=== PATIENT | male | born 1960 | race Caucasian/White ===

== ENCOUNTER 2016-11-21 03:36 | Emergency (ER) | payer MEDICARE ==
[2016-02-22 10:04] VITALS: BMI 28.9
[~2016-11-21 03:36] MED LIST: ADVAIR 250/501 DISK INH; HYDROCODON-ACE1 EAC9 PO; LEVAQUIN750 MG PO; PREDNISONE10 MG PO; PROVENTIL HFA6.7 GM INH
[2016-11-21 03:53] LABS: BASOPHILS 0.5 % (0-2); EOSINOPHILS 4.4 % (0-7); HEMATOCRIT 31.4 % (42.0-54.0); HEMOGLOBIN 10.3 g/dL (13.5-17.5); IMMATURE GRANULOCYTES 0.2 % (0-5); LYMPHOCYTES 31.5 % (15-50); MCH 29.1 pg (26.0-34.0); MCHC 32.8 g/dL (31.0-37.0); MCV 88.7 fL (80.0-100.0); MEAN PLATELET VOLUME 9.6 fL (7.4-10.4); MONOCYTES 12.1 % (2-11); NEUTROPHILS 51.3 % (40-80); PLATELET COUNT 282 10x3/uL (130-400); RBC 3.54 10x6/uL (4.20-6.10); RDW 14.6 % (11.5-14.5); WBC 6.6 10x3/uL (4.8-10.8)
[2016-11-21 04:10] LABS: ALBUMIN 3.1 g/dL (3.4-5.0); ALKALINE PHOSPHATASE 124 U/L (46-116); ALT (SGPT) 62 U/L (10-68); BILIRUBIN - TOTAL 0.16 mg/dL (0.2-1.3); CALC OSMOLALITY 274 mosm/kg (275-300); CALCIUM 9.5 mg/dL (8.5-10.1); CARBON DIOXIDE 22.2 mmol/L (21.0-32.0); CHLORIDE - SERUM 106 mmol/L (98-107); CREATININE - SERUM 0.9 mg/dL (0.6-1.3); POTASSIUM - SERUM 4.2 mmol/L (3.5-5.1); PROTEIN - SERUM 6.3 g/dL (6.4-8.2); SODIUM 138 mmol/L (136-145); UREA NITROGEN 9 mg/dL (7-18); eGFR NON AFRICAN AMERICAN > 90 mL/min (90-120)
[2016-11-21 04:13] LABS: GLUCOSE 94 mg/dL (74-106)
== END 2016-11-21 04:31 | disposition home or self-care (01) ==
LOC: D.ER 03:36
PROVIDERS: Emergency Medicine
DX: G25.81 Restless legs syndrome (principal); M79.605 Pain in left leg; M79.604 Pain in right leg

== ENCOUNTER 2016-11-24 10:15 | Emergency (ER) | payer MEDICARE ==
[2016-02-22 10:04] VITALS: BMI 28.9
[2016-11-24 13:57] LABS: BASOPHILS 0.5 % (0-2); EOSINOPHILS 2.8 % (0-7); HEMATOCRIT 37.8 % (42.0-54.0); HEMOGLOBIN 12.1 g/dL (13.5-17.5); IMMATURE GRANULOCYTES 0.1 % (0-5); LYMPHOCYTES 22.9 % (15-50); MCH 29.1 pg (26.0-34.0); MCV 90.9 fL (80.0-100.0); MEAN PLATELET VOLUME 10.1 fL (7.4-10.4); MONOCYTES 6.5 % (2-11); NEUTROPHILS 67.2 % (40-80); PLATELET COUNT 316 10x3/uL (130-400); RBC 4.16 10x6/uL (4.20-6.10); RDW 14.9 % (11.5-14.5); WBC 7.4 10x3/uL (4.8-10.8)
[2016-11-24 14:08] LABS: APTT 34.9 SECONDS (22.8-39.4); INR 0.96 (0.85-1.17); PROTIME 12.6 SECONDS (11.6-15.0)
[2016-11-24 14:16] LABS: ALBUMIN 3.6 g/dL (3.4-5.0); ALKALINE PHOSPHATASE 118 U/L (46-116); ALT (SGPT) 57 U/L (10-68); CALC OSMOLALITY 269 mosm/kg (275-300); CALCIUM 10.6 mg/dL (8.5-10.1); CARBON DIOXIDE 28.6 mmol/L (21.0-32.0); CHLORIDE - SERUM 102 mmol/L (98-107); CREATININE - SERUM 0.8 mg/dL (0.6-1.3); GLUCOSE 103 mg/dL (74-106); PROTEIN - SERUM 7.4 g/dL (6.4-8.2); SODIUM 136 mmol/L (136-145); UREA NITROGEN 8 mg/dL (7-18); eGFR NON AFRICAN AMERICAN > 90 mL/min (90-120)
== END 2016-11-24 17:37 | disposition other institution (70) ==
LOC: D.ER 10:15
PROVIDERS: Nurse Practitioner Family
DX: D49.6 Neoplasm of unspecified behavior of brain (principal); J44.1 Chronic obstructive pulmonary disease with (acute) exacerbation

== ENCOUNTER 2018-05-10 14:25 | Emergency (ER) | payer MEDICARE ==
[~2018-05-10] VITALS: Ht 177.8 cm; Wt 89.1 kg
[2018-05-10 14:34] VITALS: Ht 177.8 cm; Wt 89.1 kg
[2018-05-10] MEDS ORDERED: NORCO 10-325 TA1 TAB PO (15:55)
[2018-05-10 16:21] VITALS: BP 130/64
== END 2018-05-10 16:22 | disposition home or self-care (01) ==
LOC: D.ER 14:25
DX: M54.32 Sciatica, left side (principal); J44.9 Chronic obstructive pulmonary disease, unspecified; F17.200 Nicotine dependence, unspecified, uncomplicated

== ENCOUNTER 2018-06-21 18:20 | Emergency (ER) | payer MEDICARE ==
[~2018-06-21] VITALS: Ht 177.8 cm; Wt 94.5 kg
[~2018-06-21 18:20] MED LIST changes: +NORCO 10-325 TA1 TAB PO
[2018-06-21 18:36] VITALS: Ht 177.8 cm; Wt 94.5 kg
[2018-06-21 19:27] LABS: BASOPHILS 0.7 % (0-2); EOSINOPHILS 6.6 % (0-7); HEMATOCRIT 41.8 % (42.0-54.0); HEMOGLOBIN 13.9 g/dL (13.5-17.5); IMMATURE GRANULOCYTES 0.2 % (0-5); LYMPHOCYTES 27.1 % (15-50); MCH 30.2 pg (26.0-34.0); MCHC 33.3 g/dL (31.0-37.0); MCV 90.9 fL (80.0-100.0); MEAN PLATELET VOLUME 10.5 fL (7.4-10.4); MONOCYTES 10.1 % (2-11); NEUTROPHILS 55.3 % (40-80); PLATELET COUNT 301 10x3/uL (130-400); RDW 15.8 % (11.5-14.5)
[2018-06-21 19:32] LABS: ALBUMIN 3.4 g/dL (3.4-5.0); ALKALINE PHOSPHATASE 143 U/L (46-116); ALT (SGPT) 51 U/L (10-68); BILIRUBIN - TOTAL 0.18 mg/dL (0.2-1.3); CALC OSMOLALITY 279 mosm/kg (275-300); CALCIUM 10.1 mg/dL (8.5-10.1); CARBON DIOXIDE 23.8 mmol/L (21.0-32.0); CHLORIDE - SERUM 104 mmol/L (98-107); CREATININE - SERUM 0.8 mg/dL (0.6-1.3); GLUCOSE 128 mg/dL (74-106); PROTEIN - SERUM 7.2 g/dL (6.4-8.2); SODIUM 139 mmol/L (136-145); UREA NITROGEN 12 mg/dL (7-18); eGFR NON AFRICAN AMERICAN > 90 mL/min (90-120)
[2018-06-21 19:43] LABS: CKMB 1.4 U/L (0.0-3.6); CREATINE KINASE 116 UL (21-232)
[2018-06-21 19:53] LABS: TROPONIN-I < 0.017 ng/mL (0.000-0.060)
[2018-06-21 21:11] VITALS: BP 148/88
== END 2018-06-21 21:11 | disposition home or self-care (01) ==
LOC: D.ER 18:20
PROVIDERS: Family Medicine
DX: R06.00 Dyspnea, unspecified (principal); Z85.118 Personal history of other malignant neoplasm of bronchus and lung; J44.9 Chronic obstructive pulmonary disease, unspecified; F17.200 Nicotine dependence, unspecified, uncomplicated